=== PATIENT | male | born 1990 | race Caucasian/White ===

== ENCOUNTER → 2016-03-13 | Outpatient (CLI) | payer OTHER ==
--- NOTE | 2016-03-13 15:41 | US ---
EXAMINATION TYPE: US groin extremity RT DATE OF EXAM: 03/13/2016 12:38 PM COMPARISON: NONE CLINICAL HISTORY: US. Possible hernia right groin, edema right groin, bulging right groin when patien t coughs or sneezes TECHNOLOGIST IMPRESSION: Right groin: NO evidence of break in the abdominal wall at this time by ult rasound with valsalva. Multiple lymph nodes noted within right groin (patient's area of concern) with largest = 1.6 x 0.7 x 1.5cm There is no bowel containing hernia on scanning of the right groin. Some benign-appearing but promine nt right groin lymph nodes are marked by technologist. No worrisome focal fluid collection is noted. IMPRESSION: As above
== END | disposition home or self-care (01) ==
LOC: RADUSWWP 12:11
PROVIDERS: ATTEND Pediatrics
DX: K40.90 Unilateral inguinal hernia, without obstruction or gangrene, not specified as recurrent (principal)

== ENCOUNTER 2016-04-18 08:20 | Day surgery (SDC) | payer OTHER ==
[2016-04-16 16:08] VITALS: BMI 27.8
[~2016-04-18 08:20] MED LIST: DEXAMETHASONE SOD PHOSPHATE 10 MG/ML 1 ML VIAL IV ONE; HEPARIN SODIUM,PORCINE 5,000 UNIT/ML 1 ML VIAL SQ ONE; LACTATED RINGERS 1,000 ML IV SCH; MIDAZOLAM 2 MG/2 ML VIAL IV PRN; ONDANSETRON 4 MG/2 ML VIAL IVP ONE; SCOPOLAMINE 1.5MG/72HR PATCH TRANSDERM ONE; ceFAZolin 2 GM in SODIUM CHLORIDE 0.9% 100 ML IVPB ONE
[2016-04-18 08:39] VITALS: TEMP 98.2
[2016-04-18] MEDS: LIDOCAINE 1% 20 ML VIAL (10MG/ML) FOR IV START INTRADERMA PRN ×2 (09:00→09:01)
[2016-04-18] MEDS ORDERED: LIDOCAINE 1% INJ 10MG/ML (20 ML MDV) ONE (09:25)
[2016-04-18] MEDS ORDERED: MIDAZOLAM 2 MG/2 ML VIAL ONE (09:25)
[2016-04-18] MEDS ORDERED: SUCCINYLCHOLINE CHLORIDE 100 MG/5 ML SYR IV ONE (09:25)
[2016-04-18] MEDS ORDERED: ROCURONIUM BROMIDE 10 MG/ML 10 ML VIAL IV ONE (09:25)
[2016-04-18] MEDS ORDERED: GLYCOPYRROLATE 0.2 MG/ML 2 ML VIAL ONE (09:25)
[2016-04-18] MEDS ORDERED: NEOSTIGMINE 1 MG/ML 10 ML VIAL ONE (09:25)
[2016-04-18] MEDS ORDERED: fentaNYL (PF) 50 MCG/ML 2 ML AMP ONE (09:25)
[2016-04-18] MEDS ORDERED: PROPOFOL 10 MG/ML 20 ML VIAL IV ONE (09:25)
[2016-04-18] MEDS ORDERED: BUPIVACAIN-EPI 0.25%-1:200,000 30 ML VIAL SQ ONE ×2 (09:51)
--- NOTE | 2016-04-18 10:56 | P.OP ---
Date of Procedure: 04/18/16 Preoperative Diagnosis: Right reducible initial inguinal hernia without incarceration or obstruction or gangrene Postoperative Diagnosis: Right indirect reducible initial inguinal hernia without incarceration or obstruction or gangrene Procedure(s) Performed: Robot assisted laparoscopic inguinal hernia repair with mesh Implants: BaRD 10 X 15 PROGRIP MESH Anesthesia: JENNIFER Surgeon: Abi Gillespie Estimated Blood Loss (ml): 7 Pathology: none sent Condition: stable Disposition: PACU Indications for Procedure: painful inguinal swelling Operative Findings: right indirect inguinal hernia Description of Procedure: Informed consent was obtained patient and then The patient was brought to the operating room and placed in supine position. General anesthesia with endotracheal intubation was performed as per anesthesia team. A wolf catheter was inserted under sterile aseptic precautions. Chlorhexidine was used to prep the skin followed by application of sterile drapes . He was placed in the lithotomy position. A timeout was performed to verify correct patient, correct procedure and correct side. Patient was confirmed to receive perioperative IV antibiotics, subcutaneous heparin 5000 units and bilateral SCDs were placed. The left upper quadrant point was identified and a stab incision was made. Veress needle was introduced and placement was confirmed with the help of the drop test. The abdomen was then insufflated to 15 mmHg. Once that was done 5 mm port was introduced into the left upper quadrant using the Optiview technique after which a 12 mm port was placed in the supraumbilical position and a 8 mm port in the right lower quadrant and then after that the left-sided 5 mm port was replaced with a robot 8 mm port under direct vision. The robot was then docked with the central camera port and the 2 side working ports. The scope was introduced and the abdomen down through the 12 mm port site. Cardiere forceps and scissor were introduced in the abdominal cavity after which the median umbilical fold was retracted laterally towards the left side a small incision was made at the junction of the umbilical fold and the peritoneum and carried all the way laterally thus creating a small plane in the preperitoneal space. This did this was further dissected with the help of blunt dissection using gentle stroking maneuvers all the way down to Raymond ligament medially and laterally we went inferior exposing the vessels inferiorly. The vas was identified and the hernia sac was teased off of the spermatic cord gently with the help of blunt dissection and once it was taken off and was major that was reduced Bard Pro cloth trimmer hand mesh was introduced in the abdominal cavity with the lower part above the level of the peritoneal fold was then unfolded so that it covered all the orifices and covered the Raymond's ligament medially once again pain positioned perfectly to seal was applied to the inferior edge of the mesh as well as around the Raymond' s ligament after which the peritoneal flaps were closed with the help of running 0 v lock suture once that was done procedure was completed all incisions and camera was removed and a laparoscope was introduced and the 12 mm port site was closed with the help of a Louis Figueroa the direct vision after which gas was turned off abdomen was thoroughly desufflated skins was closed with the help of 4-0 Monocryl and Dermabond. Wolf catheter was removed patient was extubated and taken to recovery room in stable condition patient tolerated the procedure well there were no complications
[2016-04-18] MEDS: HYDROmorphone 1 MG/ML 1 ML SYRINGE IVP PRN ×2 (11:16→11:26)
[2016-04-18] MEDS ORDERED: KETOROLAC 30 MG/ML 1 ML VIAL IVP ONE (11:45)
[2016-04-18] MEDS ORDERED: HYDROcodone/APAP 5-325MG 1 EACH TAB PO ONE ×2 (12:43→13:33)
[2016-04-18 15:19] VITALS: RESP 18
[2016-04-18 15:24] VITALS: BP 120/62; PULSE 60
== END 2016-04-18 15:01 | disposition home or self-care (01) ==
LOC: OR 08:20
PROVIDERS: ATTEND Surgery
DX: K40.90 Unilateral inguinal hernia, without obstruction or gangrene, not specified as recurrent (principal); J45.909 Unspecified asthma, uncomplicated; Z79.51 Long term (current) use of inhaled steroids; Z79.899 Other long term (current) drug therapy
CPT/HCPCS: 49650; C1781; J2250; J1644; J1100; J2710; J0690; J2405; J2001; J3010; J1885; J1170; J0330; J2704